=== PATIENT | male | born 1975 | race Caucasian/White ===

== ENCOUNTER 2020-04-06 01:09 | Observation (INO) ==
[2020-04-06] MEDS ORDERED: 0.9 % Sodium Chloride 1,000 ML IVC ONE (01:42)
[2020-04-06] MEDS ORDERED: Isovue-370 500 ML BOTTLE IVP ONE (02:19)
[2020-04-06 02:27] LABS: Basophils # 0.1 K/mcL (0.0-0.2); Basophils % 0.5 %; Eosinophils # 0.1 K/mcL (0.0-0.6); Eosinophils % 1.1 %; Hematocrit 48.4 % (37.5-50.1); Hemoglobin 16.1 g/dL (12.9-16.9); Immature Granulocytes % 0.4 % (0-4); Lymphocytes # 2.3 K/mcL (0.6-4.6); Lymphocytes % 21.6 %; Mean Corpuscular HGB Conc 33.3 g/dL (31.6-35.5); Mean Corpuscular Hemoglobin 29.6 pg (28.0-33.3); Mean Platelet Volume 10.5 fL (9.4-12.4); Monocytes # 0.9 K/mcL (0.0-1.3); Monocytes % 8.4 %; Neutrophils # 7.2 K/mcL (1.6-8.9); Platelet Count 216 K/mcL (140-400); Red Blood Count 5.44 M/mcL (4.19-5.50); Red Cell Distribution Width 12.4 % (11.5-14.5); White Blood Count 10.5 K/mcL (4.3-11.1)
[2020-04-06 02:39] LABS: Bilirubin,Urine Negative (Negative); Blood,Urine Negative (Negative); Clarity,Urine Clear (Clear); Color,Urine Yellow (Yellow); Glucose,Urine (UA) >=1000 mg/dL (Normal); Ketones,Urine Negative (Negative); Leukocyte Esterase,Urine Negative (Negative); Nitrite,Urine Negative (Negative); PH,Urine 6.5 pH Units (5.0-8.0); Protein,Urine Trace mg/dL (Neg-Trace); Specific Gravity,Urine 1.027 (1.010-1.025); Urobilinogen,Urine Normal (Normal)
[2020-04-06] MEDS ORDERED: Morphine Sulfate 2 MG/ML SYRINGE IVP ONE ×2 (02:42→04:32)
[2020-04-06 02:43] LABS: Alanine Aminotransferase 41 Units/L (7-52); Albumin 4.7 g/dL (3.5-5.7); Albumin/Globulin Ratio 1.7 (1.1-2.2); Alkaline Phosphatase 81 Units/L (34-104); Aspartate Amino Transferase 25 Units/L (13-39); BUN/Creatinine Ratio 19 (6-26); Bilirubin,Direct 0.1 mg/dL (0.0-0.2); Bilirubin,Indirect 0.4 mg/dL (0.0-1.0); Bilirubin,Total 0.5 mg/dL (0.3-1.0); Blood Urea Nitrogen 18 mg/dL (6-20); Calcium 9.7 mg/dL (8.6-10.3); Carbon Dioxide 26 mEq/L (23-29); Chloride 102 mEq/L (98-107); Globulin 2.8 g/dL (2.4-3.5); Glucose 196 mg/dL (70-105); Lipase 22 Units/L (11-82); Osmolality,Calculated 289 (280-300); Potassium 4.1 mEq/L (3.5-5.1); Sodium 136 mEq/L (136-145); Total Protein 7.5 g/dL (6.4-8.9); eGFR For African Americans > 60 (> 60); eGFR For Non-African Americans > 60 (> 60)
[2020-04-06] MEDS ORDERED: Piperacillin/Tazobactam 3.375 GM in Water for inj. (sterile) 20 ML IVP ONE (04:30)
[2020-04-06] MEDS ORDERED: Ondansetron 4 MG/2 ML VIAL IVP PRN ×3 (04:40→20:26)
[2020-04-06] MEDS ORDERED: 0.9 % Sodium Chloride 1,000 ML IVC SCH (04:45)
[2020-04-06] MEDS: 0.9 % Sodium Chloride 1,000 ML IVC SCH ×3 (06:12→21:12)
[2020-04-06] MEDS ORDERED: Piperacillin/Tazobactam 3.375 GM in 0.9 % Sodium Chloride Mini Bag 100 ML IVPB SCH (08:00)
[2020-04-06] MEDS: Piperacillin/Tazobactam 3.375 GM in 0.9 % Sodium Chloride Mini Bag 100 ML IVPB SCH ×3 (08:20→23:27)
[2020-04-06] MEDS ORDERED: Lidocaine -MPF 4% 5 ML AMPUL ONE (18:31)
[2020-04-06] MEDS ORDERED: Ondansetron 4 MG/2 ML VIAL ONE (18:32)
[2020-04-06] MEDS ORDERED: Lidocaine -MPF 2% 2 ML VIAL ONE (18:32)
[2020-04-06] MEDS ORDERED: *HR* Rocuronium Bromide 50 MG/5 ML VIAL ONE (18:32)
[2020-04-06] MEDS ORDERED: *HR* Succinylcholine 200 MG/10 ML VIAL IVP ONE (18:32)
[2020-04-06] MEDS ORDERED: *HR* Midazolam HCl 2 MG/2 ML VIAL ONE (18:32)
[2020-04-06] MEDS ORDERED: *HR* FentaNYL (PF) 100 MCG/2 ML VIAL ONE (18:33)
[2020-04-06] MEDS ORDERED: *HR* Propofol 200 MG/20 ML VIAL IVP ONE (18:34)
[2020-04-06] MEDS ORDERED: Famotidine 20 MG/2 ML VIAL ONE (18:40)
[2020-04-06] MEDS ORDERED: Acetaminophen IV 1,000 MG/100 ML INFUS..BTL ONE (18:40)
[2020-04-06] MEDS ORDERED: Ketorolac 30 MG/ML VIAL ONE (19:08)
[2020-04-06] MEDS ORDERED: *HR* Meperidine 25 MG/ML SYRINGE IVP PRN (19:43)
[2020-04-06] MEDS ORDERED: *HR* HYDROmorphone PF 0.5 MG/0.5 ML SYRINGE IVP PRN (19:43)
[2020-04-06] MEDS ORDERED: Ondansetron 4 MG/2 ML VIAL IVP ONE (19:43)
[2020-04-06] MEDS ORDERED: *HR* OxyCODONE Immed Rel 5 MG TABLET PO PRN (19:43)
[2020-04-06] MEDS ORDERED: *HR* OxyCODONE/APAP 5/325 TABLET PO PRN (20:26)
[2020-04-07] MEDS: 0.9 % Sodium Chloride 1,000 ML IVC SCH (05:40)
[2020-04-07] MEDS: Piperacillin/Tazobactam 3.375 GM in 0.9 % Sodium Chloride Mini Bag 100 ML IVPB SCH (09:00)
[2020-04-07 10:17] VITALS: BP 136/84
== END 2020-04-07 11:02 | disposition home or self-care (01) ==
LOC: 3ANU 01:09 → EMEROOARM 01:09 → 3ANU 05:35
PROVIDERS: ADMIT Surgery; ATTEND Surgery